=== PATIENT | female | born 1935 | race Two or more races ===

== ENCOUNTER 2022-09-10 16:24 | Inpatient (IN) | payer MEDICAID ==
[~2022-09-10] VITALS: Ht 152.4 cm; Wt 42.2 kg
--- NOTE | 2022-09-10 16:30 | NUR ---
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 SENT OVER FOR LEFT FOOT WOUND. IV LINE ESTABLISHED TO R HAND 20G PATENT AND INTACT. WARM BLANKEDT PROVIDED.
--- NOTE | 2022-09-10 17:59 | NUR ---
DR CHAN ON THE PHONE WITH DR KELLY
[2022-09-10] MEDS ORDERED: IV NS 0.9% 1,000 ML BAG IV ONE (18:00)
[2022-09-10 18:25] LABS: BASOPHILS % (AUTO) 0.3 % (0.0-2.0); EOSINOPHILS % (AUTO) 0.1 % (0.0-6.0); HEMATOCRIT 36 % (33-45); HEMOGLOBIN 11.3 g/dL (11.5-14.8); LYMPHOCYTES # (AUTO) 0.7 K/uL (0.8-4.8); LYMPHOCYTES % (AUTO) 6.5 % (20.0-44.0); MEAN CORPUSCULAR HGB CONC 31 g/dl (31.0-36.0); MEAN CORPUSCULAR VOLUME 86 fL (82-100); MONOCYTES # (AUTO) 0.6 K/uL (0.1-1.30); MONOCYTES % (AUTO) 5.8 % (2.0-12.0); NEUTROPHILS # (AUTO) 9.6 K/uL (1.8-8.9); NEUTROPHILS % (AUTO) 87.3 % (43.0-81.0); PLATELET COUNT (AUTO) 311 K/uL (150-450); RED BLOOD CELL COUNT(AUTO) 4.17 MIL/uL (4.0-5.2)
[2022-09-10] MEDS ORDERED: HEPARIN SODIUM,PORCINE/PF 50 UNIT/5 ML DISP.SYRIN IV ONE (18:30)
[2022-09-10] MEDS ORDERED: HEPARIN INFUSION/D5W 0 ML IV ONE (18:37)
[2022-09-10 18:42] LABS: CALCIUM, SERUM 9.2 mg/dL (8.5-10.1); CARBON DIOXIDE 29 mmol/L (21-32); CHLORIDE 111 mmol/L (98-107); CREATININE 0.7 mg/dL (0.6-1.3); GLUCOSE 120 mg/dL (74-106); POTASSIUM 3.5 mmol/L (3.5-5.1); SODIUM SERUM 148 mmol/L (136-145); UREA NITROGEN, BLOOD 19 mg/dL (7-18)
[2022-09-10] MEDS ORDERED: OMEG1CAP18 PO (18:43)
[2022-09-10] MEDS ORDERED: MULT-447 PO (18:43)
[2022-09-10] MEDS ORDERED: ATOR10TA PO (18:43)
[2022-09-10] MEDS ORDERED: RIVA15TA PO (18:43)
[2022-09-10] MEDS ORDERED: METO25TA4 PO (18:43)
[2022-09-10] MEDS ORDERED: DOCU250C14 PO (18:43)
[2022-09-10] MEDS ORDERED: SITA50TA PO (18:43)
[2022-09-10] MEDS ORDERED: IOHEXOL-350 100 ML VIAL IV ONE ×2 (18:53)
[2022-09-10] MEDS ORDERED: CT SWABBABLE VALVE TRANS SET 1 EA INFUS.SET MC ONE (18:54)
[2022-09-10] MEDS ORDERED: IV NS 0.9% 250 ML IV ONE (18:54)
[2022-09-10 18:57] LABS: ALANINE AMINOTRANSFERASE 16 U/L (12-78); ALBUMIN 2.3 g/dL (3.4-5.0); ALKALINE PHOSPHATASE 94 U/L (46-116); ASPARTATE AMINOTRANSFERASE 37 U/L (15-37); BILIRUBIN,DIRECT 0.2 mg/dL (0.0-0.2); BILIRUBIN,TOTAL 0.6 mg/dL (0.2-1.0); TOTAL PROTEIN, SERUM 7.5 g/dL (6.4-8.2)
[2022-09-10] MEDS ORDERED: HEPARIN SODIUM, PORCINE 5000 UNITS/1 ML VIAL IV ONE (19:00)
--- NOTE | 2022-09-10 19:30 | NUR ---
RECEIVED PT AWAKE. VS STABLE. SAFETY MEASURES IN PLACE. WILL CONTINUE TO MONITOR.
--- NOTE | 2022-09-10 19:33 | NUR ---
ENDORSE TO NEXT SHIFT FOR CONTINUATION OF CARE. IV LINE STARTED TO LEFT FOREARM. PATENT AND INTACT.
--- NOTE | 2022-09-10 19:50 | NUR ---
PT TAKEN TO CT VIA RODRIGO
--- NOTE | 2022-09-10 19:54 | NUR ---
UPDATED [facility] [phone]
[2022-09-10] MEDS: HEPARIN INFUSION/D5W 500 ML IV PRN (20:10)
--- NOTE | 2022-09-10 20:10 | NUR ---
BLOOD DRAW PERFORMED AT BEDSIDE.
--- NOTE | 2022-09-10 20:15 | NUR ---
DOSE CHECKED AND CONFIRMED WITH PHARMACY. HEPARIN 3200 UNITS BOLUS GIVEN. HEPARIN DRIP STARTED AT 774 UNITS. ORDER FOR PTPTT AFTER [address]
--- NOTE | 2022-09-10 20:32 | NUR ---
VASCULAR SURGEON AT BEDSIDE
--- NOTE | 2022-09-10 20:37 | NUR ---
COVID ANTIGEN SWAB COLLECTED AND SENT TO LAB
--- NOTE | 2022-09-10 22:43 | NUR ---
DR ASHLEY NEWELL AT PT'S BEDSIDE FOR EVAL
--- NOTE | 2022-09-10 23:05 | NUR ---
[id number]
[2022-09-10] MEDS ORDERED: ONDANSETRON HCL/PF 4 MG/2 ML VIAL IVP PRN (23:30)
[2022-09-10] MEDS ORDERED: ZOLPIDEM TARTRATE 5 MG TABLET PO PRN (23:30)
[2022-09-10] MEDS ORDERED: Z GUARD REMEDY 4 OZ OINT TP PRN (23:30)
[2022-09-10] MEDS ORDERED: MAGNESIUM HYDROXIDE 30 ML UDC PO PRN (23:30)
[2022-09-10] MEDS ORDERED: MORPHINE SULFATE INJ 2 MG/ML DISP.SYRIN IV PRN (23:30)
[2022-09-10] MEDS ORDERED: MAG HYDROX/AL HYDROX/SIMETH 30 ML UDC PO PRN (23:30)
[2022-09-10] MEDS ORDERED: HYDROCODONE/APAP 5/325MG TABLET PO PRN (23:30)
[2022-09-10] MEDS ORDERED: ACETAMINOPHEN 325 MG TABLET PO PRN (23:30)
--- NOTE | 2022-09-10 23:40 | NUR ---
REPORT GIVEN TO MERLYN MOJICA
--- NOTE | 2022-09-11 00:05 | NUR ---
ELECTRICAL INSTALLATION SUPERVISOR AT PT'S BEDSIDE
--- NOTE | 2022-09-11 00:33 | NUR ---
CRITICAL LAB TROPONIN [id number]
--- NOTE | 2022-09-11 00:51 | NUR ---
PT TRANSFERRING TO [facility] VIA ACLS PROTOCOL. VSS.
--- NOTE | 2022-09-11 01:00 | NUR ---
RECEIVING DISTRIBUTION STATION OPERATOR ADMITTING NOTE PATIENT WAS TRANSFERRED FROM ER TO [facility] AT 0100H; PATIENT IS A/O X 0, NONVERBAL AND UNABLE TO MAKE NEEDS KNOWN; STABLE ON ROOM AIR, BREATHING EVENLY AND NO S/S OF DISTRESS NOTED; PATIENT WAS NOTED TO BE SEVERELY CONTRACTED; WITH IV ACCESSES AT RIGHT HAND G#20 RUNNING WITH HEPARIN DRIP AT 774 UNITS/HR STARTED AT ER, AND LEFT FOREARM G#20; HOOKED TO TELE MONITORING CURRENTLY READING SINUS TACHYCARDIA; SKIN ASSESSMENT WAS DONE AND NOTED LEFT LOWER EXTREMITY BLUISH DISCOLORATION WITH NO PALPABLE PULSE AND OPEN WOUND, WITH RIGHT LOWER EXTREMITY ABRASION, OPEN SACRAL WOUND, ALL PHOTOGRAPHED AND INSERTED INTO CHART; SAFETY MEASURES IMPLEMENTED, BED LOCKED IN LOWEST POSITION, SIDE RAILS UP X 2, CALL LIGHT WITHIN REACH; HOB ELEVATED; WILL CONTINUE TO MONITOR THROUGHOUT SHIFT
--- NOTE | 2022-09-11 02:20 | NUR ---
ROLLER MAKER NOTE PATIENT WAS NOTED TO BE SCRATCHING HER FACE AND ATTEMPTING TO PULL OUT LINES, AN ON RIGHT HAND PROVIDED FOR PATIENT'S SAFETY, DR RAMIREZ MADE AWARE.
--- NOTE | 2022-09-11 03:20 | NUR ---
CHIP BIN CONVEYOR TENDER NOTE RECEIVED APTT RESULT AT 031; LATEST APTT IS 65.1, NO CHANGE PER HEPARIN DRIP PROTOCOL NON ACS (DVT) PROTOCOL; ORDERED DAILY PTT STARTING 09/12/22; WILL CONTINUE TO MONITOR
[2022-09-11 04:00] VITALS: BP 159/89
[2022-09-11 04:52] LABS: BASOPHILS % (AUTO) 0.3 % (0.0-2.0); EOSINOPHILS % (AUTO) 0.1 % (0.0-6.0); HEMATOCRIT 37 % (33-45); HEMOGLOBIN 11.7 g/dL (11.5-14.8); LYMPHOCYTES # (AUTO) 1.1 K/uL (0.8-4.8); MEAN CORPUSCULAR HGB CONC 32 g/dl (31.0-36.0); MEAN CORPUSCULAR VOLUME 87 fL (82-100); MONOCYTES # (AUTO) 0.7 K/uL (0.1-1.30); MONOCYTES % (AUTO) 6.5 % (2.0-12.0); NEUTROPHILS # (AUTO) 8.9 K/uL (1.8-8.9); NEUTROPHILS % (AUTO) 83.1 % (43.0-81.0); PLATELET COUNT (AUTO) 308 K/uL (150-450); RED BLOOD CELL COUNT(AUTO) 4.28 MIL/uL (4.0-5.2); WHITE BLOOD COUNT (AUTO) 10.7 K/uL (4.3-11.0)
[2022-09-11 05:22] LABS: CARBON DIOXIDE 27 mmol/L (21-32); CHLORIDE 111 mmol/L (98-107); CREATININE 0.6 mg/dL (0.6-1.3); GLUCOSE 122 mg/dL (74-106); MAGNESIUM 2.2 mg/dL (1.8-2.4); PHOSPHORUS 3.4 mg/dL (2.5-4.9); POTASSIUM 2.9 mmol/L (3.5-5.1); SODIUM SERUM 150 mmol/L (136-145); UREA NITROGEN, BLOOD 14 mg/dL (7-18)
[2022-09-11 06:03] LABS: THYROID STIMULATING HORMONE 1.146 uIU/mL (0.358-3.74)
--- NOTE | 2022-09-11 07:12 | NUR ---
AIRPLANE INSPECTOR OPEN NOTE NOTE PATIENT IS A/O X 0, NONVERBAL AND UNABLE TO MAKE NEEDS KNOWN; STABLE ON ROOM AIR, BREATHING EVENLY AND NO S/S OF DISTRESS NOTED; PATIENT WAS NOTED TO BE SEVERELY CONTRACTED; WITH IV ACCESSES AT RIGHT HAND G#20 RUNNING WITH HEPARIN DRIP , AND LEFT FOREARM G#20; HOOKED TO TELE MONITORING CURRENTLY READING SINUS TACHYCARDIA; SKIN ASSESSMENT WAS DONE AND NOTED LEFT LOWER EXTREMITY BLUISH DISCOLORATION WITH NO PALPABLE PULSE AND OPEN WOUND, WITH RIGHT LOWER EXTREMITY ABRASION, OPEN SACRAL WOUND, PATIENT IS NPO DUE TO DID PASS SWALLOW EVAL SAFETY MEASURES IMPLEMENTED, BED LOCKED IN LOWEST POSITION, SIDE RAILS UP X 2, CALL LIGHT WITHIN REACH; HOB ELEVATED; WILL CONTINUE TO MONITOR THROUGHOUT SHIFT
[2022-09-11] MEDS: IV D5/0.45 NACL 1,000 ML IV PRN (07:28)
--- NOTE | 2022-09-11 07:40 | NUR ---
CUT IN STATION OPERATOR CLOSING NOTE PATIENT IS A/O X 0, NONVERBAL AND UNABLE TO MAKE NEEDS KNOWN; STABLE ON ROOM AIR, BREATHING EVENLY AND NO S/S OF DISTRESS NOTED; PATIENT WAS NOTED TO BE SEVERELY CONTRACTED; WITH IV ACCESSES AT RIGHT HAND G#20 RUNNING WITH HEPARIN DRIP AT 774 UNITS/HR STARTED AT ER, AND LEFT FOREARM G#20; HOOKED TO TELE MONITORING CURRENTLY READING SINUS TACHYCARDIA; NO COMPLAINTS OF PAIN AND DISCOMFORT AT THIS TIME; SAFETY MEASURES IMPLEMENTED, BED LOCKED IN LOWEST POSITION, SIDE RAILS UP X 2, CALL LIGHT WITHIN REACH; HOB ELEVATED; ENDORSED TO AM NURSE FOR THEODORA.
[2022-09-11 08:00] VITALS: BP 163/78
[2022-09-11] MEDS ORDERED: hydrALAZINE HCL IV 20 MG VIAL IV PRN (08:30)
--- NOTE | 2022-09-11 08:30 | NUR ---
WOUND CARE CONSULT: PT PRESENTS WITH UPPER/MIDBACK SCARRING, SACRAL UNSTAGEABLE PRESSURE ULCER, BILATERAL FOOT WOUNDS, ALL PRESENT ON ADMISSION. DR BRYAN VARGAS CALLED FOR SURGICAL CONSULT OF SACRAL WOUND AND DR ALDRICH CALLED FOR LOWER EXTREMITY WOUNDS. DISCUSSED SKIN PROTECTION WITH NURSING STAFF. PT IS INCONTINENT AND NOTED TO BE AGITATED AT TIMES. IN AGREEMENT WITH PLAN OF CARE. Addendum: 09/11/22 at 0831 by NEIL WRIGHT WNDNU Amended: Links added.
[2022-09-11] MEDS: PANTOPRAZOLE 40 MG VIAL IV SCH (08:32)
[2022-09-11] MEDS ORDERED: ASPIRIN 81 MG TAB.CHEW PO SCH (09:00)
[2022-09-11] MEDS: POTASSIUM CL. PREMIX PERIPHER. 50 ML IV SCH ×10 (09:07→17:51)
[2022-09-11] MEDS: DAKINS QUARTER STRENGTH (0.125%) 480 ML BOTTLE TOP SCH (10:15)
[2022-09-11] MEDS ORDERED: POTASSIUM CL. PREMIX PERIPHER. 50 ML IV SCH (11:00)
[2022-09-11 12:02] VITALS: BP 105/95
[2022-09-11] MEDS: POVIDONE-IODINE OINT 28.4 GM TUBE TP SCH (15:54)
[2022-09-11] MEDS: DIGOXIN INJ 0.5 MG/2 ML AMPUL IV SCH ×3 (15:54→23:39)
[2022-09-11 16:15] VITALS: BP 125/90
--- NOTE | 2022-09-11 19:02 | NUR ---
SPINNER CONTINUOUS CLOSING NOTE PATIENT IS A/O X 0, NONVERBAL AND UNABLE TO MAKE NEEDS KNOWN; STABLE ON ROOM AIR, BREATHING EVENLY AND NO S/S OF DISTRESS NOTED; PATIENT WAS NOTED TO BE SEVERELY CONTRACTED; WITH IV ACCESSES AT RIGHT HAND G#20 RUNNING WITH HEPARIN DRIP AT 774 UNITS/HR STARTED AT ER, AND LEFT FOREARM G#20; HOOKED TO TELE MONITORING CURRENTLY READING SINUS TACHYCARDIA; LEFT FORE ARM RUNNING 1/2 NS D5 AT 75 ML/HR , AND POTASSIUM REPLACEMENT [id number] DO NO COMPLAINTS OF PAIN AND DISCOMFORT AT THIS TIME; SAFETY MEASURES IMPLEMENTED, BED LOCKED IN LOWEST POSITION, SIDE RAILS UP X 2, CALL LIGHT WITHIN REACH; HOB ELEVATED; ENDORSED TO PM NURSE FOR THEODORA.
--- NOTE | 2022-09-11 19:10 | NUR ---
RN NOTE RECEIVED PT FOR CONTINUITY OF CARE. PATIENT NON VERBAL NO S/SX OF ACUTE DISTRESS AT THIS TIME; CURRENTLY ON ROOM AIR; WITH 02 SAT >95% AT THIS TIME. WITH FAMILY AT BEDSIDE. WITH IV ACCESS ON FA#20 AND R HAND#20 BOTH PATENT, INTACT AND FLUSHING WELL. WITH RUNNING D51/2NS@75CC/HR. WITH ONGOING HEPARIN DRIP RECEIVED @ 774U/HR, RUNNING PER PROTOCOL. WITH SOFT WRIST RESTRAINT ON THE R HAND IN PLACED, MONITORED AND ASSESSED PER PROTOCOL. WILL ENSURE SAFETY MEASURES WITHIN THE SHIFT. PATIENT BED ALARM IS ON. HEAD OF BED ELEVATED. BED IS LOCKED, IN LOWEST POSITION AND SIDE RAILS UP. CALL LIGHT WITHIN REACH OF THE PATIENT. WILL CONTINUE TO MONITOR AND REASSESS FOR ANY CHANGES AND WILL CARRY OUT ANY ONGOING AND ACTIVE MD ORDER.
[2022-09-11 20:00] VITALS: BP 145/68
[2022-09-12] VITALS: BP 125/68
[2022-09-12] MEDS: HEPARIN INFUSION/D5W 500 ML IV PRN (03:28)
[2022-09-12] MEDS: IV D5/0.45 NACL 1,000 ML IV PRN (03:29)
[2022-09-12 04:00] VITALS: BP 130/82
--- NOTE | 2022-09-12 04:00 | NUR ---
RN NOTE PATIENT REMAINED TO BE IN NO SIGNS OF ACUTE RESPIRATORY DISTRESS ,VITAL SIGNS STABLE AT THIS TIME. REGULAR TURNING AND REPOSITIONING DONE, AND AM PATIENT CARE RENDERED WILL CONTINUE TO MONITOR AND REASSESS FOR ANY CHANGES THROUGHOUT THE SHIFT.
--- NOTE | 2022-09-12 06:51 | NUR ---
RN NOTE PATIENT REMAINS IN ROOM IN NO SIGNS OF RESPIRATORY DISTRESS, PATIENT STILL ON ROOM AIR; WITH 02 SAT >95% SP02. STILL ON NPO. SR-ST ON MONITOR WITHIN THE SHIFT. RESTRAINTS RENEWED. SAFETY MEASURES IMPLEMENTED, BED IN LOWEST POSITION, LOCKED, SIDE RAILS UP, CALL LIGHT WITHIN REACH. ALL NEEDS AND ORDERS ADDRESSED DURING THE SHIFT. IV ACCESS MAINTAINED INTACT, SECURED AND FLUSHING WELL. ALL DUE MEDS GIVEN ORDERED & SCHEDULED ; PATIENT TOLERATED WELL. STILL WITH ONGOING HEPARIN DRIP RUNNING PER PROTOCOL; NEW APTT RESULT NOT YET OUT. PATIENT KEPT CLEAN AND COMFORTABLE WITHIN THE SHIFT. PATIENT ENDORSED TO INCOMING SHIFT RN WITH STABLE VITAL SIGN AND FOR CONTINUITY OF CARE.
--- NOTE | 2022-09-12 07:15 | NUR ---
DINING ROOM CASHIER CLOSING NOTE PATIENT IS A/O X 0, NONVERBAL AND UNABLE TO MAKE NEEDS KNOWN; STABLE ON ROOM AIR, BREATHING EVENLY AND NO S/S OF DISTRESS NOTED; PATIENT WAS NOTED TO BE SEVERELY CONTRACTED; WITH IV ACCESSES AT RIGHT HAND G#20 RUNNING WITH HEPARIN DRIP AT 774 UNITS/HR STARTED AT ER, AND LEFT FOREARM G#20; HOOKED TO TELE MONITORING CURRENTLY READING SINUS TACHYCARDIA; LEFT FORE ARM RUNNING 1/2 NS D5 AT 75 ML/HR ,[id number] DO NO COMPLAINTS OF PAIN AND DISCOMFORT AT THIS TIME; SAFETY MEASURES IMPLEMENTED, BED LOCKED IN LOWEST POSITION, SIDE RAILS UP X 2, CALL LIGHT WITHIN REACH; HOB ELEVATED; WILL CONTINUE TO MONITOR
[2022-09-12 08:00] VITALS: BP 139/82
[2022-09-12] MEDS: PANTOPRAZOLE 40 MG VIAL IV SCH (09:16)
[2022-09-12] MEDS: POVIDONE-IODINE OINT 28.4 GM TUBE TP SCH (09:17)
[2022-09-12] MEDS: DAKINS QUARTER STRENGTH (0.125%) 480 ML BOTTLE TOP SCH (09:17)
[2022-09-12 12:00] VITALS: BP 148/69
== END 2022-09-12 15:30 | disposition hospice, home (50) | DRG 197 ==
LOC: ER 16:41 → TELE1 23:19
PROVIDERS: ADMIT Student in an Organized Health Care Education/Training Program; ATTEND Internal Medicine
DX: I70.262 Atherosclerosis of native arteries of extremities with gangrene, left leg (principal); N17.0 Acute kidney failure with tubular necrosis; I21.4 Non-ST elevation (NSTEMI) myocardial infarction; I75.023 Atheroembolism of bilateral lower extremities; E44.0 Moderate protein-calorie malnutrition; D68.59 Other primary thrombophilia; D63.8 Anemia in other chronic diseases classified elsewhere; L89.896 Pressure-induced deep tissue damage of other site; L89.620 Pressure ulcer of left heel, unstageable; I48.91 Unspecified atrial fibrillation; E86.0 Dehydration; I70.234 Atherosclerosis of native arteries of right leg with ulceration of heel and midfoot; E87.0 Hyperosmolality and hypernatremia; I69.354 Hemiplegia and hemiparesis following cerebral infarction affecting left non-dominant side; E87.6 Hypokalemia; E78.5 Hyperlipidemia, unspecified; F03.90 Unspecified dementia, unspecified severity, without behavioral disturbance, psychotic disturbance, mood disturbance, and anxiety; I10 Essential (primary) hypertension; K21.9 Gastro-esophageal reflux disease without esophagitis; Z79.84 Long term (current) use of oral hypoglycemic drugs; Z79.01 Long term (current) use of anticoagulants; Z79.899 Other long term (current) drug therapy; S30.91XA Unspecified superficial injury of lower back and pelvis, initial encounter; X58.XXXA Exposure to other specified factors, initial encounter; Y93.9 Activity, unspecified; Y92.89 Other specified places as the place of occurrence of the external cause; Z20.822 Contact with and (suspected) exposure to COVID-19
CPT/HCPCS: 36415; 71045-TC; 80048-TC; 80076-TC; 83605-TC; 83735-TC; 84100-TC; 84443-TC; 84484-TC; 85025-TC; 85730-TC; 86850-TC; 87081-TC; 92526; 92611-TC; 93307-TC; A4223; A6253; A6403; C9113; C9803; G0378; J0360; J1160; J1642; J1644; J3480; J3490; J7050; Q9967